=== PATIENT | female | born 1990 | race Caucasian/White ===

== ENCOUNTER 2022-12-03 14:07 | Emergency (ER) | payer OTHER ==
[~2022-12-03] VITALS: Ht 160 cm; Wt 97.5 kg
[2022-12-03] MEDS ORDERED: HYDROXYZINE PAM50 MG PO (14:31)
[2022-12-03] MEDS ORDERED: TRAZODONE HCL50 MG PO (14:32)
[2022-12-03] MEDS ORDERED: ESCITALOPRAM OX20 MG PO (14:32)
== END 2022-12-03 17:08 | disposition home or self-care (01) ==
LOC: ER 14:07
DX: S93.402A Sprain of unspecified ligament of left ankle, initial encounter (principal); Z88.0 Allergy status to penicillin